=== PATIENT | female | born 1960 | race Caucasian/White ===

== ENCOUNTER 2016-09-26 20:34 | Emergency (ER) | payer OTHER ==
--- NOTE | 2016-09-26 22:17 | ER Document Report ---
ED Medical Screen (RME) - General Chief Complaint: Abdominal Injury Stated Complaint: ABDOMINAL PAIN Time Seen by Provider: 09/26/16 22:16 Notes: 36-year-old female, chief complaint of trauma to the lower abdomen on the right side, states she tripped and then fell over a joe which is metal. Reports pain, bruising, swelling to the area. She is not on a blood thinner. She denies head injury, back pain, or other locations of injury. She denies vomiting, hematuria. PMH hysterectomy. TRAVEL OUTSIDE OF THE [place] IN LAST 30 DAYS: No - Related Data Allergies/Adverse Reactions: Sulfa (Sulfonamide Antibiotics) Allergy (Verified 09/26/16 22:16) Past Medical History Renal/ Medical History: Denies: Hx Peritoneal Dialysis Physical Exam - Vital signs Vitals: Temp Pulse Resp BP Pulse Ox 97.7 F 58 L 18 162/86 H 100 09/26/16 21:41 09/26/16 21:41 09/26/16 21:41 09/26/16 21:41 09/26/16 21:41 Course - Vital Signs Vital signs: Temp Pulse Resp BP Pulse Ox 97.7 F 58 L 18 162/86 H 100 09/26/16 21:41 09/26/16 21:41 09/26/16 21:41 09/26/16 21:41 09/26/16 21:41
[2016-09-26 22:58] LABS: APPEARANCE,URINE SLIGHTLY-CLOUDY; BILIRUBIN,URINE NEGATIVE (NEGATIVE); GLUCOSE, URINE NEGATIVE (NEGATIVE); KETONES,URINE NEGATIVE (NEGATIVE); LEUKOCYTE ESTERASE,URINE NEGATIVE (NEGATIVE); NITRITE,URINE NEGATIVE (NEGATIVE); PROTEIN,URINE NEGATIVE (NEGATIVE); URINE SPECIFIC GRAVITY 1.005; UROBILINOGEN,URINE NEGATIVE mg/dL (<2.0)
[2016-09-26 23:06] LABS: ANION GAP 14 (5-19); BLOOD UREA NITROGEN 19 mg/dL (7-20); CALCIUM 9.8 mg/dL (8.4-10.2); CARBON DIOXIDE 26 mmol/L (22-30); CHLORIDE 98 mmol/L (98-107); CREATININE RESULT 1.06 mg/dL (0.52-1.25); GLUCOSE 96 mg/dL (75-110); POTASSIUM 4.1 mmol/L (3.6-5.0)
--- NOTE | 2016-09-27 00:17 | ER Document Report ---
ED General - General Chief Complaint: Abdominal Injury Stated Complaint: ABDOMINAL PAIN Time Seen by Provider: 09/26/16 22:16 Notes: Patient is a 56-year-old female without significant past medical history, prior surgical history of a cholecystectomy, hysterectomy, who does present to the emergency department tonight with concerns about abdominal pain and lower abdominal bruising. States that earlier today she fell forward onto a joe at work hitting her right lower quadrant just above the level of her pelvis. She did sustain bruising to the area and notes that since that time she feels that her abdomen has become somewhat more swollen. She also notes an intermittent, burning, mild pain to the area of ecchymosis that intermittently radiates to her right upper quadrant. She denies any associated melena, hematochezia, vomiting, hematuria, or significant abdominal pain. This injury did occur approximately 12 hours prior to arrival. Her pain and symptoms have been unchanged since time of injury. Nothing improves or worsens her symptoms. She has not seen her primary care doctor regarding today's concerns. TRAVEL OUTSIDE OF THE [place] IN LAST 30 DAYS: No - Related Data Allergies/Adverse Reactions: Sulfa (Sulfonamide Antibiotics) Allergy (Verified 09/26/16 22:16) Past Medical History - General Information source: Patient - Social History Smoking Status: Never Smoker Frequency of alcohol use: None Drug Abuse: None Lives with: Spouse/Significant other Family History: Reviewed & Not Pertinent Patient has suicidal ideation: No Patient has homicidal ideation: No Renal/ Medical History: Denies: Hx Peritoneal Dialysis Review of Systems - Review of Systems Notes: Constitutional: Negative for fever. HENT: Negative for sore throat. Eyes: Negative for visual changes. Cardiovascular: Negative for chest pain. Respiratory: Negative for shortness of breath. Gastrointestinal: Positive for abdominal pain and lower abdominal bruising Genitourinary: Negative for dysuria. Musculoskeletal: Negative for back pain. Skin: Negative for rash. Neurological: Negative for headaches, weakness or numbness. 10 point ROS negative except as marked above and in HPI. Physical Exam - Vital signs Vitals: Temp Pulse Resp BP Pulse Ox 97.7 F 58 L 18 162/86 H 100 09/26/16 21:41 09/26/16 21:41 09/26/16 21:41 09/26/16 21:41 09/26/16 21:41 Interpretation: Bradycardic Notes: PHYSICAL EXAMINATION: GENERAL: Well-appearing, well-nourished and in no acute distress. HEAD: Atraumatic, normocephalic. EYES: Pupils equal round and reactive to light, extraocular movements intact, sclera anicteric, conjunctiva are normal. ENT: nares patent, oropharynx clear without exudates. Moist mucous membranes. NECK: Normal range of motion, supple without lymphadenopathy LUNGS: Breath sounds clear to auscultation bilaterally and equal. No wheezes rales or rhonchi. HEART: Regular rate and rhythm without murmurs ABDOMEN: Soft, nontender, normoactive bowel sounds. No guarding, no rebound. No masses appreciated. EXTREMITIES: Normal range of motion, no pitting or edema. No cyanosis. NEUROLOGICAL: No focal neurological deficits. Moves all extremities spontaneously and on command. PSYCH: Normal mood, normal affect. SKIN: Warm, Dry, normal turgor, there are ecchymosis to the right lower quadrant Course - Re-evaluation Re-evalutation: 09/27/16 00:14 The patient presents with a right lower abdominal bruise after falling onto a joe at approximately 9 AM this morning. Patient is overall extremely well in appearance, no hypotension or tachycardia. She has no focal abdominal tenderness on examination, no rebound or guarding. Notes only a mild burning sensation to the area of ecchymosis that is intermittent in nature. She has not had any melena, hematochezia, hematuria or vomiting. FATS exam is negative. States that she believes she may have had a panic attack tonight over her concern about possible intra-abdominal injuries which is what prompted her to come to the emergency department tonight. At time of my assessment patient denies any ongoing complaints. I have had a risks and benefits conversation with the patient regarding CT imaging of the abdomen and pelvis at this time. We discussed, based on today's exam and labs there is a possibility that they could have a diagnosis that could be better clarified by CT and that this could possibly exchange consultant. We discussed the risks of radiation to the abdomen and pelvis. We discussed the alternative of close follow-up with their primary care physician for a recheck of the abdomen within 24 hours as well as reasons to return to the emergency department. After this conversation , the patient has elected to avoid CT imaging of the abdomen and pelvis at this time. They have capacity. They have verbalized the importance of close follow- up as well as reasons to return to the emergency department including worsening abdominal pain, fever, persistent vomiting, or any other symptoms that are worrisome to them. - Vital Signs Vital signs: Temp Pulse Resp BP Pulse Ox 97.7 F 66 18 150/75 H 100 09/26/16 21:41 09/27/16 00:23 09/27/16 00:23 09/27/16 00:23 09/27/16 00:23 - Laboratory Result Diagrams: 09/26/16 22:20 Laboratory results interpreted by me: 09/26/16 22:20 Est GFR (Non-Af Amer) 54 L Discharge - Discharge Clinical Impression: Superficial bruising of abdominal wall Qualifiers: Encounter type: initial encounter Qualified Code(s): S30.1XXA - Contusion of abdominal wall, initial encounter Abdominal trauma Qualifiers: Encounter type: initial encounter Qualified Code(s): S39.91XA - Unspecified injury of abdomen, initial encounter Condition: Good Disposition: HOME, SELF-CARE Additional Instructions: Please return to the emergency department immediately if you develop worsening abdominal pain, vomiting, fever greater than 100.4F, begin having blood in her stool or urine, or have any other symptoms that are worrisome to you. You may take Tylenol or ibuprofen per box instructions as needed for abdominal pain. Referrals: TOMASA WALDROP MD [Primary Care Provider] - Follow up as needed
[2016-09-27 00:24] VITALS: BP 150/75
== END 2016-09-27 00:22 | disposition home or self-care (01) ==
LOC: ER 20:34
DX: S30.1XXA Contusion of abdominal wall, initial encounter (principal); W22.8XXA Striking against or struck by other objects, initial encounter; Y99.0 Civilian activity done for income or pay; Z88.2 Allergy status to sulfonamides
CPT/HCPCS: 36415; 80048; 81001; 99284

== ENCOUNTER 2019-11-30 05:23 | Observation (INO) | payer OTHER ==
[2019-11-25 11:08] LABS: APPEARANCE,URINE CLEAR; BILIRUBIN,URINE NEGATIVE (NEGATIVE); COLOR,URINE COLORLESS; GLUCOSE, URINE NEGATIVE (NEGATIVE); KETONES,URINE NEGATIVE (NEGATIVE); LEUKOCYTE ESTERASE,URINE NEGATIVE (NEGATIVE); NITRITE,URINE NEGATIVE (NEGATIVE); PROTEIN,URINE NEGATIVE (NEGATIVE); URINE SPECIFIC GRAVITY 1.004; UROBILINOGEN,URINE NEGATIVE mg/dL (<2.0)
[2019-11-25 11:09] LABS: HEMATOCRIT 40.2 % (36.0-47.0); HEMOGLOBIN 13.3 g/dL (12.0-15.5); MEAN CORPUSCULAR HEMOGLOBIN 29.6 pg (27.0-33.4); MEAN CORPUSCULAR HGB CONC 33.1 g/dL (32.0-36.0); MEAN CORPUSCULAR VOLUME 89 fl (80-97); PLATELET COUNT 255 10^3/uL (150-450); RED BLOOD COUNT 4.51 10^6/uL (3.72-5.28); RED CELL DISTRIBUTION WIDTH 13.9 % (11.5-14.0); WHITE BLOOD COUNT 4.7 10^3/uL (4.0-10.5)
[2019-11-25 11:44] LABS: ANION GAP 9 (5-19); BLOOD UREA NITROGEN 18 mg/dL (7-20); C-REACTIVE PROTEIN 8.2 mg/L (<10.0); CALCIUM 10.1 mg/dL (8.4-10.2); CARBON DIOXIDE 30 mmol/L (22-30); CHLORIDE 101 mmol/L (98-107); GLUCOSE 101 mg/dL (75-110); POTASSIUM 4.5 mmol/L (3.6-5.0)
[2019-11-25 12:29] LABS: ERYTHROCYTE SEDIMENTATION RATE 19 mm/hr (0-30)
--- NOTE | 2019-11-25 12:46 | RADIOLOGY REPORT (SQ) ---
EXAM DESCRIPTION: CHEST PA/LATERAL IMAGES COMPLETED DATE/TIME: 11/25/2019 10:31 am REASON FOR STUDY: PRE-OP COMPARISON: None. EXAM PARAMETERS: NUMBER OF VIEWS: two views TECHNIQUE: Digital Frontal and Lateral radiographic views of the chest acquired. RADIATION DOSE: NA LIMITATIONS: none FINDINGS: LUNGS AND PLEURA: No opacities, masses or pneumothorax. No pleural effusion. MEDIASTINUM AND HILAR STRUCTURES: No masses or contour abnormalities. HEART AND VASCULAR STRUCTURES: Heart normal size. No evidence for failure. BONES: No acute findings. HARDWARE: None in the chest. OTHER: No other significant finding. IMPRESSION: NO SIGNIFICANT RADIOGRAPHIC FINDING IN THE CHEST. TECHNICAL DOCUMENTATION: JOB ID: [id number] 2010 [employer]- All Rights Reserved Reading location - IP/workstation name: [email or web address]
[~2019-11-30 05:23] MED LIST: ACETAMINOPHEN 325 MG TABLET ONE; ACETAMINOPHEN 325 MG TABLET PO PRN; CEFAZOLIN 2 GM/D5W RTU 2 GM/50 ML RTUPB IV ONE; CEFAZOLIN 2 GM/D5W RTU 2 GM/50 ML RTUPB IV PRN; CELECOXIB 200 MG CAPSULE ONE; CELECOXIB 200 MG CAPSULE PO PRN; GABAPENTIN 100 MG CAPSULE ONE; GABAPENTIN 100 MG CAPSULE PO PRN; LACTATED RINGERS 1000 ML IV PRN; LIDOCAINE 0.5% INJ-PF (5 MG/ML) 50 ML SDV SUBCUT PRN; ONDANSETRON HCL INJ/PF 4 MG/2 ML SDV IV PRN; ONDANSETRON HCL INJ/PF 4 MG/2 ML SDV ONE; OXYCODONE HCL SR 10 MG TABLET PO ONE; OXYCODONE HCL SR 10 MG TABLET PO PRN; SCOPOLAMINE HYDROBROMIDE 1.5 MG PATCH.TD72 ONE; SCOPOLAMINE HYDROBROMIDE 1.5 MG PATCH.TD72 TD PRN; TRAMADOL HCL 50 MG TABLET ONE; TRAMADOL HCL 50 MG TABLET PO PRN; TRANEXAMIC ACID INJ/PF 1,000 MG/10 ML SDV IV PRN; VANCOMYCIN HCL 1,000 MG in DEXTROSE 5%-WATER 250 ML IV PRN
[2019-11-30] MEDS ORDERED: LIDOCAINE 0.5% INJ-PF (5 MG/ML) 50 ML SDV ONE (06:21)
[2019-11-30] MEDS ORDERED: EPINEPHRINE INJ/PF 1 MG/1 ML AMPULE ONE (06:23)
[2019-11-30] MEDS ORDERED: MIDAZOLAM 2 MG/2 ML INJ ONE (06:23)
[2019-11-30] MEDS ORDERED: FENTANYL CITRATE INJ/PF 100 MCG/2 ML AMPUL ONE (06:23)
[2019-11-30] MEDS ORDERED: EPHEDRINE SULFATE INJ 50 MG/1 ML AMPULE ONE (06:23)
[2019-11-30] MEDS ORDERED: PROPOFOL INJ 200 MG/20 ML VIAL IV ONE ×2 (06:24→09:49)
[2019-11-30] MEDS ORDERED: TRANEXAMIC ACID INJ/PF 1,000 MG/10 ML SDV ONE (06:24)
[2019-11-30] MEDS ORDERED: ONDANSETRON HCL INJ/PF 4 MG/2 ML SDV ONE (06:24)
[2019-11-30] MEDS ORDERED: PANTOPRAZOLE SODIUM 20 MG TABLET.DR PO ONE (07:13)
[2019-11-30] MEDS ORDERED: TRAMADOL HCL 50 MG TABLET PO PRN (07:13)
[2019-11-30] MEDS ORDERED: DIPHENHYDRAMINE HCL 25 MG CAPSULE PO PRN (07:13)
[2019-11-30] MEDS ORDERED: OXYCODONE HCL IR 5 MG TABLET PO PRN ×4 (07:13)
[2019-11-30] MEDS ORDERED: ONDANSETRON 4 MG TAB.RAPDIS PO PRN (07:13)
[2019-11-30] MEDS ORDERED: DOCUSATE SODIUM 100 MG CAPSULE PO PRN (07:13)
[2019-11-30] MEDS ORDERED: DEXAMETHASONE SOD PHOS INJ 10 MG/1 ML VIAL IV ONE (07:13)
[2019-11-30] MEDS ORDERED: ZOLPIDEM TARTRATE 5 MG TABLET PO PRN (07:13)
[2019-11-30] MEDS ORDERED: NORMAL SALINE 1000 ML 1,000 ML IV ONE (07:13)
[2019-11-30] MEDS ORDERED: MORPHINE SULFATE 10 MG/ML INJ IV PRN ×3 (07:13→08:12)
[2019-11-30] MEDS ORDERED: KETOROLAC TROMETHAMINE INJ/PF 30 MG/1 ML SDV ONE (07:14)
[2019-11-30] MEDS ORDERED: LIDOCAINE 1% INJ-PF (10 MG/ML) 30 ML SDV ONE (07:14)
[2019-11-30] MEDS ORDERED: BUPIVACAINE HCL 0.25 % INJ/PF (2.5 MG/1 ML) 30 ML VIAL ONE (07:14)
[2019-11-30] MEDS ORDERED: VANCOMYCIN HCL INJ 1000 MG VIAL ONE (07:14)
[2019-11-30] MEDS ORDERED: FENTANYL CITRATE INJ/PF 100 MCG/2 ML AMPUL IV PRN ×3 (08:12)
[2019-11-30] MEDS ORDERED: OXYCODONE-ACETAMINOPHEN 5-325 MG TABLET PO PRN ×2 (08:12)
[2019-11-30] MEDS ORDERED: DIPHENHYDRAMINE HCL 50 MG/ML VIAL IV PRN (08:12)
[2019-11-30] MEDS ORDERED: TRANEXAMIC ACID INJ/PF 1,000 MG/10 ML SDV IV PRN (09:00)
--- NOTE | 2019-11-30 09:51 | Operative Report ---
Operative Report DATE OF SURGERY: 11/30/19 PREOPERATIVE DIAGNOSIS: Severe right knee osteoarthritis POSTOPERATIVE DIAGNOSIS: Severe right knee osteoarthritis, primary OPERATION: Right total knee arthroplasty SURGEON: KENNY KAMARA JR ANESTHESIA: Spinal COMPLICATIONS: None ESTIMATED BLOOD LOSS: 10 cc PROCEDURE: Components: Susanne triathlon total knee: 4 PS femur, 5 x 11 tibia, and a 32 patella OPERATIVE PROCEDURE: Patient was brought to the operating room and spinal anesthesia was administered. After proper anesthesia was obtained, patient was positioned, padded, prepped, and draped in the usual sterile fashion on the operating room table. 2 grams of Ancef and 1 g of vancomycin were given. Appropriate time out was performed. Anterior incision and medial-parapatella approach was performed. Severe degenerative arthritis was noted. Osteophytes were removed from the femur and tibia, and the remainder of the ACL and PCL were removed. The proximal tibia was then prepared and cut perpendicular to the tibial shaft axis and measured to a 5 tibia. The distal femur was drilled, the canal was irrigated and the distal femoral guide was placed. The distal femur was cut 10 mm to 5 degrees of varus. An extension 10 block was placed in the gap was found to be tight. 2 additional millimeters were resected of the distal femur. The extension block was found to be appropriate after this. The tensor was placed in extension and the extension gap was balanced with releases until the goniometer on the tensor measured to 0. The tensor was placed in flexion and the femur was sized to 4. Drill holes were placed to the appropriate femoral rotation. The 4 and 1 block was placed and the flexion gap was then re-checked with the tensor adapter and found to be appropriate. Anterior-posterior and chamfer cuts were made. Posterior osteophytes were removed. The femoral trial was then placed, and the notch was cut. The combination of the tibial baseplate and the 10 mm polyethylene liner were then placed and the knee was taken through a range of motion with the trials in. This had excellent balance with slight mid range instability in extension and flexion as well as patellar tracking. Subsequent trial with an 11 poly-was found to be ideal. The patella AP aspect was measured to 26 mm and the patella was cut parallel to the anterior patella surface. A 32 mm button was placed medially and superiorly as possible and the patella-button construct again measured through 6 mm. This was again taken through a range of motion and found to have excellent balance, stability and ease of full motion. The rotation of the tibial baseplate was marked, the tibial was anteriorly subluxed and the tibial component was pinned and drilled and punched. All the trials were then removed and the wound was copiously irrigated with sterile saline followed by a Betadine soak. After pulsatile irrigation of the nellie and soft tissue surfaces, the nellie surfaces were cleaned and dried, and cementation of the femur, tibia, and patella was performed. All excess cement was thoroughly removed. The knee was placed in slight flexion until cement was hard. Periarticular injection with Lidocaine, Marcaine and Toradol was performed. The knee was irrigated copiously. A gram of Vancomycin was placed intra-articularly. The extensor mechanism was closed with 0 vicryl tacking sutures and number 2 Stratofix. The subcutaneous tissue was closed with 2-0 monocryl and the skin closed with 3-0 running monocryl. A silver dressing was applied. All needle sponge and instrument counts were correct. Patient was awakened from sedation anesthesia and taken to recovery room in good condition. Kenny Kamara DO
[2019-11-30] MEDS ORDERED: ROPIVACAINE HCL 0.5% INJ/PF (5 MG/1 ML) 30 ML SDV ONE (09:53)
[2019-11-30] MEDS ORDERED: LEVOTHYROXINE SODIUM 0.088 MG TABLET PO SCH (10:00)
[2019-11-30] MEDS ORDERED: CELECOXIB 200 MG CAPSULE PO SCH (10:00)
[2019-11-30] MEDS ORDERED: GABAPENTIN 100 MG CAPSULE PO SCH (10:00)
[2019-11-30] MEDS ORDERED: HYDROXYCHLOROQUINE SULFATE 200 MG TABLET PO SCH (10:00)
[2019-11-30] MEDS ORDERED: POLYETHYLENE GLYCOL 3350 POWDER 17 GM/1 PACKET PO SCH (10:00)
[2019-11-30] MEDS ORDERED: ASPIRIN 325 MG TABLET PO SCH (10:00)
[2019-11-30] MEDS ORDERED: (PENDING PHARMACY ID) (Lisinopril [Lisinopril] 20 MG) PO SCH (10:00)
[2019-11-30] MEDS ORDERED: ACETAMINOPHEN 325 MG TABLET PO SCH (12:00)
[2019-11-30] MEDS: ACETAMINOPHEN 325 MG TABLET PO SCH ×2 (12:08→15:03)
--- NOTE | 2019-11-30 12:18 | RADIOLOGY REPORT (SQ) ---
EXAM DESCRIPTION: KNEE RIGHT 2 VIEWS IMAGES COMPLETED DATE/TIME: 11/30/2019 10:45 am REASON FOR STUDY: post op M17.11 UNILATERAL PRIMARY OSTEOARTHRITIS, RIGHT KNEE COMPARISON: None. NUMBER OF VIEWS: Two views. TECHNIQUE: AP and lateral radiographic images acquired of the right knee. LIMITATIONS: None. FINDINGS: MINERALIZATION: Normal. BONES: Right total knee replacement in good position. JOINT: No effusion. SOFT TISSUES: No soft tissue swelling. No radio-opaque foreign body. OTHER: No other significant finding. IMPRESSION: Right total knee replacement. Refer to operative note for further information. TECHNICAL DOCUMENTATION: JOB ID: [id number] 2010 [employer]- All Rights Reserved Reading location - IP/workstation name: [email or web address]
[2019-11-30] MEDS ORDERED: CEFAZOLIN SODIUM 2 GM in DEXTROSE 5%-WATER 100 ML IV SCH (14:00)
[2019-11-30] MEDS ORDERED: CEFAZOLIN 2 GM/D5W RTU 2 GM/50 ML RTUPB IV SCH (14:00)
[2019-11-30] MEDS ORDERED: KETOROLAC TROMETHAMINE INJ/PF 30 MG/1 ML SDV IV SCH (14:00)
[2019-11-30 16:29] VITALS: BP 115/88
[2019-12-01] MEDS ORDERED: LISINOPRIL 10 MG TABLET PO SCH (10:00)
--- NOTE | 2019-12-02 08:20 | Discharge Summary ---
Discharge Summary (SDC) - Discharge Final Diagnosis: Right knee primary osteoarthritis, severe Date of Surgery: 11/30/19 Discharge Date: 11/30/19 Condition: Stable Forms: Discharge POC-Adult Treatment or Instructions: Full details of postoperative instructions have been provided to the patient in the clinic. Additionally they should maintain their bandage in place for 10 days, and then changed to a dry dressing. They can take showers with this occlusive dressing but any further dressing should also be occlusive. No showers with the wound unprotected until cleared by me in the clinic. If the bandage falls off early or become saturated they can change as needed to another occlusive dressing. Follow-up with Dr. Kenny Swan, orthopedic surgeon at [facility] for surgery, in 10 days. Call for an appointment. . [address], [place] [address] Referrals: JUNIOR BERGER MD [Primary Care Provider] - Respiratory Treatments at Home: Deep Breathing/Coughing Discharge Activity: Activity As Tolerated, No Driving, Keep Legs Elevated, No Lifting/Push/Pulling, No tub bath, Walk Frequently Home Care Assistance: Home Health Activities Provided by Home Health Agency: Physical Therapy Adaptive Devices on Discharge: Straight Cane, Rolling Walker, Bedside Commode Report the Following to Your Physician Immediately: Shortness of Breath, Fever over 101 Degrees, Unusual Bleeding, Swelling, Drainage-Yellow
== END 2019-11-30 18:07 | disposition home or self-care (01) ==
LOC: OROUT 05:23 → 5 07:14
PROVIDERS: ADMIT Orthopaedic Surgery; ATTEND Orthopaedic Surgery
DX: M17.31 Unilateral post-traumatic osteoarthritis, right knee (principal); M17.11 Unilateral primary osteoarthritis, right knee; E03.9 Hypothyroidism, unspecified; I10 Essential (primary) hypertension; E66.3 Overweight; Z79.899 Other long term (current) drug therapy; Z79.890 Hormone replacement therapy; Z03.818 Encounter for observation for suspected exposure to other biological agents ruled out; Z01.810 Encounter for preprocedural cardiovascular examination; Z01.811 Encounter for preprocedural respiratory examination
CPT/HCPCS: 36415; 82040; 85027; 85652; 86140; 80048; 81001; 83036; 82306; 71046; 73560; 97530; 97110; 97116; 97163; 97535; 97165; 01402; 27447; G0378; G0379; C1713 ×3; C1776; U0003; J2795; J2250; J0690 ×2; J3490 ×5; J0171; S0119; J1885; J2405; J7060 ×2; J2704; J3370; C9803; 87635; J3010